=== PATIENT | female | born 1970 | race Caucasian/White ===

== ENCOUNTER 2017-08-12 21:13 | Emergency (ER) | payer BC ==
[~2017-08-12] VITALS: Ht 160 cm; Wt 54.4 kg
[~2017-08-12 21:13] MED LIST: CALC8.5C PO; CIPR1TAB11 PO; CLR10 PO; LOSA1TAB PO; META-38 PO; MULT-506 PO; NXM/40 PO
[2017-08-12 21:36] VITALS: TEMP 36.7; Ht 160 cm; Wt 54.4 kg
[2017-08-12] MEDS ORDERED: KETOROLAC TROMETHAMINE 30 MG/ML VIAL IV STA (21:46)
[2017-08-12] MEDS ORDERED: SODIUM CHLORIDE 0.9% 1000ML 1,000 ML IV STA (21:46)
[2017-08-12] MEDS ORDERED: ONDANSETRON INJ 2 MG/ML 2 ML VIAL IV STA (21:46)
[2017-08-12] MEDS ORDERED: FLUT0.15 NAE (21:56)
[2017-08-12] MEDS ORDERED: HYDR-3419 PO (21:56)
[2017-08-12 22:45] LABS: BASO ABS # 0.08 K/uL (0-0.2); EOS % 3.3 %; EOS ABS # 0.27 K/uL (0-0.5); HEMATOCRIT 37.1 % (37-47); HEMOGLOBIN 12.1 g/dL (12.0-16.0); IG# 0.01 K/uL (0.00-0.02); LYMPH % 34.6 %; LYMPH ABS # 2.87 K/uL (1.2-3.4); MEAN CELL VOLUME 92.3 fL (80-100); MEAN CORPUSCULAR HEMOGLOBIN 30.1 pg (25-34); MEAN CORPUSCULAR HGB CONC 32.6 g/dl (32-36); MEAN PLATELET VOLUME 9.9 fL (7.4-10.4); MONO % 11.8 %; MONO ABS # 0.98 K/uL (0.11-0.59); NEUT % 49.2 %; NEUT ABS # 4.08 K/uL (1.4-6.5); PLATELET COUNT 292 K/uL (130-400); RED CELL DISTRIBUTION WIDTH CV 13.1 % (11.5-14.5); WHITE BLOOD COUNT 8.29 K/uL (4.8-10.8)
--- NOTE | 2017-08-12 22:58 | DIAGNOSTIC IMAGING REPORT ---
ABD/PELVIS WITHOUT FOR STONE CT DOSE: 326.42 mGy.cm HISTORY: Flank pain flank pain TECHNIQUE: Multiaxial CT images of the abdomen and pelvis were performed without the use of intravenous and oral contrast according to the standard department stone protocol. A dose lowering technique was utilized adhering to the principles of ALARA. COMPARISON STUDY: None. FINDINGS: Lung bases are clear. Configuration of liver spleen and pancreas are grossly unremarkable. Right kidney demonstrates several nonobstructing central pole calcifications. There is mild fullness of the right renal pelvis and central right renal collecting system. There is possibly of a partially obstructing distal right ureteral calculus measuring 3 mm transaxial images 303. There is a 6 mm obstructing calculus mid left ureter. There is significant left sided hydronephrosis. Bowel pattern is considered nonobstructing. Bladder is midline. There are no contained bladder calcifications. IMPRESSION: 1. 6 mm obstructing calculus mid left ureter with significant left hydroureteronephrosis. 2. 3 mm potentially partially obstructing calculus distal right ureter with mild right hydroureteronephrosis. 3. Due to the difficulty in differentiating right ureter from surrounding bowel within the low pelvis, the possibility of periureteral vascular artifact is not entirely excluded. The above report was generated using voice recognition software. It may contain grammatical, syntax or spelling errors. Electronically signed by: Gallito Davis M.D. 08/12/2017 10:57 PM Dictated Date/Time: 08/12/2017 10:54 PM
[2017-08-12] MEDS ORDERED: FEXO1TAB49 PO (23:01)
[2017-08-12 23:05] LABS: CALCIUM 8.7 mg/dl (8.5-10.1); CREATININE 1.26 mg/dl (0.60-1.20); POTASSIUM 3.8 mmol/L (3.5-5.1)
[2017-08-12 23:37] VITALS: BP 129/61; PULSE 78; O2SAT 98
[2017-08-12] MEDS ORDERED: TAMS0.4C38 PO (23:56)
[2017-08-12] MEDS ORDERED: OXYC-57 PO (23:56)
--- NOTE | 2017-08-12 23:57 | EMERGENCY ROOM VISIT NOTE ---
History Report prepared by Elvia: Maikel Muir Under the Supervision of: Pravin BalesO. First contact with patient: 21:43 Chief Complaint: URINARY SYMPTOMS Stated Complaint: UTI SYMPTOMS History of Present Illness The patient is a 46 year old female who presents to the Emergency Room with complaints of persistent low abdominal pressure and urinary symptoms for two weeks. She notes at 0400 she experienced pain in her urethra and pressure in her lower abdomen. She took Advil, though it was mildly relieving. At lunch time she thought she had to go, though nothing came out. She was able to urinate later on in the afternoon. She thought she passed a kidney stone August 07, 2017, because she saw something resembling a stone in the toilet. She was trying to drink more water, though no relief. She has a history of hysterectomy. She had neck surgery two years ago and afterwards she was developing urinary symptoms when she had inflammation in her neck. She is unsure if the two are related. She notes her most recent urinalysis showed blood present, though no infection. She denies any abnormal vaginal discharge. Source of History: patient Onset: two weeks Position: abdomen (low) Quality: pressure Timing: other (persistent) Associated Symptoms: + urinary symptoms Note: Denies any abnormal vaginal discharge. Review of Systems See HPI for pertinent positives & negatives. A total of 10 systems reviewed and were otherwise negative. Past Medical & Surgical Medical Problems: (1) Left sided chest pain Family History FH: CAD (coronary artery disease) Heart attack Social History Smoking Status: Never Smoker Marital Status: Housing Status: lives with significant other Occupation Status: employed Current/Historical Medications Scheduled Calcium W/ Vitamins D & K (Viactiv), 1 DOSE PO DAILY Fexofenadine Hcl (Marycruz Allergy), 1 TAB PO DAILY Fluticasone Propionate (Nasal) (Flonase Allergy Relief), 2 SPRAYS ELLA DAILY Losartan Potassium (Cozaar), 25 MG PO DAILY Multivitamin (Multivitamin), 1 TAB PO DAILY Tamsulosin Hcl (Flomax), 0.4 MG PO HS Scheduled PRN Esomeprazole Magnesium (Nexium), 40 MG PO DAILY PRN for REFLUX Hydrocodon/Acetaminophen 5MG/300MG (Vicodin (5MG/300MG)), 1-2 TABS PO Q4-6HRS PRN for Pain Oxycodone/Acetaminophen 5MG/325MG (Percocet 5MG/325MG), 1 TAB PO Q6H PRN for Pain Allergies Coded Allergies: Banana (Verified Allergy, Intermediate, sorethroat, 06/06/15) Beef (Verified Allergy, Intermediate, sorethroat, 06/06/15) Chicken Meat (Verified Allergy, Intermediate, sorethroat, 06/06/15) Egg (Verified Allergy, Intermediate, sorethroat, 06/06/15) Eggs or Egg-derived Products (Verified Allergy, Intermediate, sorethroat, 06/06/15) Molds and Smuts (Verified Allergy, Intermediate, sorethroat, 06/06/15) POLLEN (Verified Allergy, Intermediate, sorethroat, 06/06/15) Peanut (Verified Allergy, Intermediate, sorethroat, 06/06/15) Shellfish (Verified Allergy, Unknown, UNKNOWN, 08/12/17) Uncoded Allergies: ENNVIRONMENT (Allergy, Severe, SORE THROAT,HEADACHE, 08/12/17) Physical Exam Vital Signs Date Time Temp Pulse Resp B/P (MAP) Pulse Ox O2 Delivery O2 Flow Rate FiO2 08/12/17 23:37 78 18 129/61 98 Room Air 08/12/17 22:39 84 18 134/80 100 Room Air 08/12/17 21:36 36.7 78 18 140/76 100 Room Air Physical Exam CONSTITUTIONAL/VITAL SIGNS: Reviewed / noted above. GENERAL: Non-toxic in appearance. INTEGUMENTARY: Warm, dry, and [place]. HEAD: Normocephalic. EYES: without scleral icterus or trauma. ENT/OROPHARYNX: clear and moist. LYMPHADENOPATHY/NECK: Is supple without lymphadenopathy or meningismus. RESPIRATORY: Lungs clear and equal. CARDIOVASCULAR: Regular rate and rhythm. GI/ABDOMEN: Soft and tender to palpation in the pelvic area. No organomegaly or pulsatile mass. No rebound or guarding. Normal bowel sounds. EXTREMITIES: Warm and well perfused. BACK: No CVA tenderness. NEUROLOGICAL: Intact without focal deficits. PSYCHIATRIC: normal affect. MUSCULOSKELETAL: Normally developed with good muscle tone. Medical Decision & Procedures ER Provider Diagnostic Interpretation: Radiology results as stated below per my review and radiologist interpretation: ABD/PELVIS WITHOUT FOR STONE CT DOSE: 326.42 mGy.cm HISTORY: Flank pain flank pain TECHNIQUE: Multiaxial CT images of the abdomen and pelvis were performed without the use of intravenous and oral contrast according to the standard department stone protocol. A dose lowering technique was utilized adhering to the principles of ALARA. COMPARISON STUDY: None. FINDINGS: Lung bases are clear. Configuration of liver spleen and pancreas are grossly unremarkable. Right kidney demonstrates several nonobstructing central pole calcifications. There is mild fullness of the right renal pelvis and central right renal collecting system. There is possibly of a partially obstructing distal right ureteral calculus measuring 3 mm transaxial images 303. There is a 6 mm obstructing calculus mid left ureter. There is significant left sided hydronephrosis. Bowel pattern is considered nonobstructing. Bladder is midline. There are no contained bladder calcifications. IMPRESSION: 1. 6 mm obstructing calculus mid left ureter with significant left hydroureteronephrosis. 2. 3 mm potentially partially obstructing calculus distal right ureter with mild right hydroureteronephrosis. 3. Due to the difficulty in differentiating right ureter from surrounding bowel within the low pelvis, the possibility of periureteral vascular artifact is not entirely excluded. The above report was generated using voice recognition software. It may contain grammatical, syntax or spelling errors. Electronically signed by: Gallito Davis M.D. 08/12/2017 10:57 PM Dictated Date/Time: 08/12/2017 10:54 PM Laboratory Results 08/12/17 22:03 Red Blood Count 4.02, Mean Corpuscular Volume 92.3, Mean Corpuscular Hemoglobin 30.1, Mean Corpuscular Hemoglobin Concent 32.6, Mean Platelet Volume 9.9, Neutrophils (%) (Auto) 49.2, Lymphocytes (%) (Auto) 34.6, Monocytes (%) (Auto) 11.8, Eosinophils (%) (Auto) 3.3, Basophils (%) (Auto) 1.0, Neutrophils # (Auto ) 4.08, Lymphocytes # (Auto) 2.87, Monocytes # (Auto) 0.98, Eosinophils # (Auto ) 0.27, Basophils # (Auto) 0.08 08/12/17 22:03 Test 08/12/17 21:50 08/12/17 22:03 Urine Color YELLOW Urine Appearance CLOUDY (CLEAR) Urine pH 5.0 (4.5-7.5) Urine Specific [place] 1.018 (1.000-1.030) Urine Protein NEG (NEG) Urine Glucose (UA) NEG (NEG) Urine Ketones NEG (NEG) Urine Occult Blood 1+ (NEG) Urine Nitrite NEG (NEG) Urine Bilirubin NEG (NEG) Urine Urobilinogen NEG (NEG) Urine Leukocyte Esterase LARGE (NEG) Urine WBC (Auto) >30 /hpf (0-5) Urine RBC (Auto) 5-10 /hpf (0-4) Urine Hyaline Casts (Auto) 5-10 /lpf (0-5) Urine Epithelial Cells (Auto) >30 /lpf (0-5) Urine Bacteria (Auto) NEG (NEG) Urine Renal Epithelial Cells 0-5 /lpf (0-5) White Blood Count 8.29 K/uL (4.8-10.8) Red Blood Count 4.02 M/uL (4.2-5.4) Hemoglobin 12.1 g/dL (12.0-16.0) Hematocrit 37.1 % (37-47) Mean Corpuscular Volume 92.3 fL (80-100) Mean Corpuscular Hemoglobin 30.1 pg (25-34) Mean Corpuscular Hemoglobin Concent 32.6 g/dl (32-36) Platelet Count 292 K/uL (130-400) Mean Platelet Volume 9.9 fL (7.4-10.4) Neutrophils (%) (Auto) 49.2 % Lymphocytes (%) (Auto) 34.6 % Monocytes (%) (Auto) 11.8 % Eosinophils (%) (Auto) 3.3 % Basophils (%) (Auto) 1.0 % Neutrophils # (Auto) 4.08 K/uL (1.4-6.5) Lymphocytes # (Auto) 2.87 K/uL (1.2-3.4) Monocytes # (Auto) 0.98 K/uL (0.11-0.59) Eosinophils # (Auto) 0.27 K/uL (0-0.5) Basophils # (Auto) 0.08 K/uL (0-0.2) RDW Standard Deviation 44.0 fL (36.4-46.3) RDW Coefficient of Variation 13.1 % (11.5-14.5) Immature Granulocyte % (Auto) 0.1 % Immature Granulocyte # (Auto) 0.01 K/uL (0.00-0.02) Anion Gap 7.0 mmol/L (3-11) Est Creatinine Clear Calc Drug Dose 45.6 ml/min Estimated GFR () 58.8 Estimated GFR (Non- 50.7 BUN/Creatinine Ratio 15.0 (10-20) Calcium Level 8.7 mg/dl (8.5-10.1) Laboratory results as stated above per my review. Medications Administered Medications (Trade) Dose Ordered Sig/Benja Route Start Time Stop Time Status Last Admin Dose Admin Sodium Chloride 1,000 ml @ 999 mls/hr Q1H1M STAT IV 08/12/17 21:46 08/12/17 22:46 DC 08/12/17 22:09 999 MLS/HR Ondansetron HCl (Zofran Inj) 4 mg NOW STAT IV 08/12/17 21:46 08/12/17 21:49 DC 08/12/17 22:09 4 MG Ketorolac Tromethamine (Toradol Inj) 30 mg NOW STAT IV 08/12/17 21:46 08/12/17 21:49 DC 08/12/17 22:09 30 MG ED Course 5: Previous medical records were reviewed. The patient was evaluated in room B3B. A complete history and physical examination was performed. 2145: Ordered Toradol 30 mg IV, Zofran 4 mg IV, and Sodium Chloride 1,000 ml @ 999 mls/hr IV 2309: I reassessed the patient at this time. The patient was still in pain, though declined any more pain medication. I discussed the results and treatment plan with the patient. I answered all pertaining questions that she had. She expressed understanding and verbalized agreement. The patient will be discharged home. Medical Decision Differential considered: pancreatitis, hepatitis, or acute cholecystitis, AAA, UTI, pyelonephritis, kidney stones, appendicitis, diverticulitis, shingles, bowel obstruction mesenteric ischemia, intussusception, hernia, ovarian torsion , ruptured ovarian cyst, ectopic , . This is a 46-year-old female who presents to the ED with a chief complaint of pain in the suprapubic area. She states that it started around 4 AM. She has had some intermittent pains over the past week or 2 similar to this as well. She was seen by her PCP twice and had 2 urine culture that did not show infection. The patient states that she thinks that she may have passed a kidney stone last week. Her physical exam today reveals some mild suprapubic tenderness. CBC and chemistry panel did not show significant abnormalities. The BUN is 19 and the creatinine is 1.26. Urine did not show any bacteria. CT scan of the abdomen pelvis reveals a 6 mm left ureteral stone with significant hydronephrosis. There is also a 3 mm distal right ureteral stone causing some mild hydro-although the stone was not seen with certainty or could be a phlebolith. The patient was treated as above with IV Toradol, IV fluids and IV Zofran. She was given a prescription for Percocet and Flomax. She was given a referral to urology. She is felt to be stable for discharge and outpatient follow-up. Medication Reconcilliation Current Medication List: was personally reviewed by me Blood Pressure Screening Patient's blood pressure: Elevated blood pressure Blood pressure disposition: Elevated BP felt to be situational Impression Primary Impression: Bilateral ureteral calculi Scribe Attestation The scribe's documentation has been prepared under my direction and personally reviewed by me in its entirety. I confirm that the note above accurately reflects all work, treatment, procedures, and medical decision making performed by me. Departure Information Dispostion Home / Self-Care Prescriptions Oxycodone/Acetaminophen 5MG/325MG (PERCOCET 5MG/325MG) Tab 1 TAB PO Q6H Y for Pain, #20 TAB Prov: Jamie Abarca D.O. 08/12/17 Tamsulosin Hcl (FLOMAX) 0.4 Mg Cap 0.4 MG PO HS, #10 CAP Prov: Jamie Abarca D.O. 08/12/17 Referrals No Doctor, Assigned (PCP) Yossi Ladd, II., DO Forms HOME CARE DOCUMENTATION FORM, IMPORTANT VISIT INFORMATION Patient Instructions Kidney Stones - [facility], [facility] Additional Instructions Take ibuprofen or Advil 600 mg every 6 hours for discomfort. Flomax as prescribed. Percocet as prescribed. No driving within 6 hours of use. Do not take additional Tylenol while taking Percocet. Strain urine to find stone. Follow-up with urology. Dr. Yossi Ladd is listed. Follow-up with your doctor for further care and evaluation in 1-7 days. Return to the emergency department for worsening or new symptoms or any concerns. You have been examined and treated today on an emergency basis only. This is not a substitute for, or an effort to provide, complete comprehensive medical care. It is impossible to recognize and treat all injuries or illnesses in a single emergency department visit. It is therefore important that you follow up closely with your doctor. Call as soon as possible for an appointment.
== END 2017-08-13 00:17 | disposition home or self-care (01) ==
LOC: C.EDB 21:15
DX: N20.1 Calculus of ureter (principal); Z90.710 Acquired absence of both cervix and uterus; Z79.899 Other long term (current) drug therapy; Z79.52 Long term (current) use of systemic steroids; Z91.018 Allergy to other foods; Z91.012 Allergy to eggs; Z91.010 Allergy to peanuts; Z91.013 Allergy to seafood; Z91.048 Other nonmedicinal substance allergy status

== ENCOUNTER → 2017-10-25 | Outpatient (CLI) | payer BC ==
[~2017-10-25] MED LIST changes: -CIPR1TAB11 PO; -CLR10 PO; +FEXO1TAB49 PO; +FLUT0.15 NAE; +HYDR-3419 PO; -META-38 PO; +OXYC-57 PO
[2017-10-25 15:42] LABS: BASO % 1.5 %; EOS % 3.2 %; EOS ABS # 0.21 K/uL (0-0.5); HEMATOCRIT 35.7 % (37-47); HEMOGLOBIN 11.7 g/dL (12.0-16.0); IG# 0.02 K/uL (0.00-0.02); LYMPH % 33.5 %; MEAN CELL VOLUME 90.8 fL (80-100); MEAN CORPUSCULAR HEMOGLOBIN 29.8 pg (25-34); MEAN CORPUSCULAR HGB CONC 32.8 g/dl (32-36); MEAN PLATELET VOLUME 10.6 fL (7.4-10.4); MONO % 9.8 %; MONO ABS # 0.64 K/uL (0.11-0.59); NEUT % 51.7 %; NEUT ABS # 3.39 K/uL (1.4-6.5); PLATELET COUNT 237 K/uL (130-400); RED CELL DISTRIBUTION WIDTH CV 12.9 % (11.5-14.5); RED CELL DISTRIBUTION WIDTH SD 42.7 fL (36.4-46.3); WHITE BLOOD COUNT 6.56 K/uL (4.8-10.8)
[2017-10-25 16:09] LABS: BLOOD UREA NITROGEN 23 mg/dl (7-18); CARBON DIOXIDE 27 mmol/L (21-32); CREATININE 1.25 mg/dl (0.60-1.20); SODIUM 142 mmol/L (136-145)
--- NOTE | 2017-10-25 16:16 | DIAGNOSTIC IMAGING REPORT ---
CHEST 2 VIEWS ROUTINE CLINICAL HISTORY: Preoperative evaluation. COMPARISON STUDY: Chest radiograph June 05, 2015. FINDINGS: Incidental note is made of an anterior cervical spine fusion. Lung volumes are normal. No pneumothorax or pleural effusion is noted. There is no consolidation or evidence for pulmonary edema. Cardiomediastinal silhouette is unremarkable. Appearance of the chest is unchanged. IMPRESSION: No acute cardiopulmonary findings. Electronically signed by: Yeison Santiago M.D. 10/25/2017 4:14 PM Dictated Date/Time: 10/25/2017 4:14 PM
== END | disposition home or self-care (01) ==
LOC: C.CPL 14:58
PROVIDERS: ATTEND Urology
DX: N20.0 Calculus of kidney (principal)

== ENCOUNTER → 2017-11-13 | Outpatient (CLI) | payer BC ==
--- NOTE | 2017-11-13 10:05 | DIAGNOSTIC IMAGING REPORT ---
KUB CLINICAL HISTORY: 47 years-old Female presenting with N20.0 Calculus of kidney, left renal stone. TECHNIQUE: Single supine view of the abdomen was obtained. COMPARISON: 11/01/2017. FINDINGS: Nonobstructive bowel gas pattern. No gross pneumoperitoneum. Redemonstration of several small right renal calculi the interpolar region, which are punctate in size. An additional cluster of small calculi is present at the upper pole the right kidney. No radiographic evidence of left renal calculi allowing for bowel gas and stool. The previously noted calculi in the left mid ureter are no longer evident.. Osseous structures normal. Lung bases clear. IMPRESSION: 1. Right nephrolithiasis. No radiographic evidence of left renal calculi. 2. Previously noted left ureteral calculi are no longer present suggesting passage. Electronically signed by: Surendra Bonner M.D. 11/13/2017 10:05 AM Dictated Date/Time: 11/13/2017 10:02 AM
== END | disposition home or self-care (01) ==
LOC: C.RAD1850 09:35
PROVIDERS: ATTEND Urology
DX: N20.0 Calculus of kidney (principal)

== ENCOUNTER → 2017-11-13 | Outpatient (CLI) | payer BC | END | disposition home or self-care (01) | LOC: C.LABSPEC 17:15 | PROVIDERS: ATTEND Urology | DX: N20.0 Calculus of kidney (principal) ==

== ENCOUNTER → 2017-11-28 | Outpatient (CLI) | payer BC ==
[2017-11-28 15:44] LABS: BASO ABS # 0.07 K/uL (0-0.2); EOS % 2.5 %; EOS ABS # 0.18 K/uL (0-0.5); HEMATOCRIT 36.1 % (37-47); HEMOGLOBIN 12.2 g/dL (12.0-16.0); IG# 0.02 K/uL (0.00-0.02); LYMPH % 28.9 %; LYMPH ABS # 2.04 K/uL (1.2-3.4); MEAN CELL VOLUME 91.2 fL (80-100); MEAN CORPUSCULAR HEMOGLOBIN 30.8 pg (25-34); MEAN CORPUSCULAR HGB CONC 33.8 g/dl (32-36); MEAN PLATELET VOLUME 10.5 fL (7.4-10.4); MONO % 9.8 %; MONO ABS # 0.69 K/uL (0.11-0.59); NEUT % 57.5 %; NEUT ABS # 4.06 K/uL (1.4-6.5); PLATELET COUNT 251 K/uL (130-400); RED CELL DISTRIBUTION WIDTH CV 12.6 % (11.5-14.5); RED CELL DISTRIBUTION WIDTH SD 42.2 fL (36.4-46.3); WHITE BLOOD COUNT 7.06 K/uL (4.8-10.8)
[2017-11-28 16:40] LABS: ALBUMIN 4.5 gm/dl (3.4-5.0); BLOOD UREA NITROGEN 26 mg/dl (7-18); CALCIUM 9.3 mg/dl (8.5-10.1); CARBON DIOXIDE 27 mmol/L (21-32); GLUCOSE 95 mg/dl (70-99); PHOSPHORUS 3.3 mg/dl (2.5-4.9); POTASSIUM 3.8 mmol/L (3.5-5.1); SODIUM 142 mmol/L (136-145); URIC ACID 4.8 mg/dl (2.6-7.2)
== END | disposition home or self-care (01) ==
LOC: C.LAB1850 14:45
PROVIDERS: ATTEND Internal Medicine Nephrology
DX: N20.0 Calculus of kidney (principal); I10 Essential (primary) hypertension; E55.9 Vitamin D deficiency, unspecified

== ENCOUNTER 2024-07-24 04:50 | Inpatient (IN) ==
--- NOTE | 2024-07-24 05:03 | Emergency Department Note ---
Impression & Plan Sepsis, Pneumonia, Acute hypotension, Rhinovirus infection, Chest pain, SOB (shortness of breath), Bilateral leg pain ED Provider Note CHIEF COMPLAINT: Hypotension HISTORY OF PRESENTING ILLNESS: This 53-year-old female patient presents to the emergency department via EMS for evaluation of hypotension. The patient has recently been having her metoprolol dose decreased by her doctor due to bradycardia. The patient noticed around 2 am that she started to feel a little woozy and checked her BP and it was 93/65 with a HR of 77. The patient checked her blood pressure multiple times at home and it remained low. EMS was then contacted. Upon EMS arrival her blood pressure was 80/60 and she was given 1 L NSS by EMS with mild improvement of her BP to 108/64. The patient has had some nausea, but states the IV fluids helped with her nausea. EKG by EMS was normal. She has had URI symptoms for the past 5 days. She has a history of chronic sinusitis and is scheduled for surgery. She has had nausea, but no vomiting. Denies abdominal pain. Has been having intermittent chest pain and shortness of breath. The patient has also had some pain to the back of her legs bilaterally over the past week or so. She also states that she feels "weird in the head" right now, but not a headache. She denies any neurologic symptoms or strokelike symptoms. Denies any urinary symptoms or changes in her BMs. Denies hematochezia, melena, hematuria, hemoptysis, or hematemesis. Her PCP has been adjusting her metoprolol dose recently. REVIEW OF SYSTEMS: See HPI for pertinent positives and pertinent negatives. ALLERGIES: Beef containing products, chicken, Toradol, mold, pollen, milk, shellfish, multiple environmental allergies MEDICATIONS: See below PAST MEDICAL HISTORY: See below PHYSICAL EXAM: VITALS: Vitals are noted on the nurse's note and reviewed by myself. GENERAL: Non toxic, in no acute distress, non-diaphoretic. SKIN: Capillary refill <2 sec. EYES: PERRLA. EOMI. Conjunctivae without injection, sclerae without icterus. NOSE: Patent without discharge. MOUTH: Mucous membranes moist. Uvula midline. Airway patent. NECK: Supple without nuchal rigidity. HEART: Regular rate and rhythm without murmurs gallops or rubs. LUNGS: Clear to auscultation bilaterally without wheezes, rales or rhonchi. No retractions or accessory muscle use. ABDOMEN: Positive bowel sounds x 4. Normal tympanic percussion. Soft, nontender to palpation. No masses or hepatosplenomegaly. Bhandari sign negative. No CVA tenderness. No guarding, rigidity, or rebound tenderness. No focal RLQ or LLQ tenderness. MUSCULOSKELETAL: The patient has tender to palpation of the bilateral calves and bilateral popliteal fossa. No obvious erythema, warmth, or cording. Peripheral pulses 2+ and equal in the bilateral upper and lower extremities. NEURO: Patient was alert and oriented. No focal neurological deficits. DIFFERENTIAL DIAGNOSIS: Differential diagnosis includes dehydration, vasovagal episode, orthostatic hypotension, angina, AL, pericarditis, myocarditis, aortic dissection, pleurisy, pneumothorax, PE, pneumonia, pneumomediastinum, esophagitis, esophageal spasm, GERD, perforated esophagus, perforated duodenal/gastric ulcer, pancreatitis, cholecystitis, costochondritis, musculoskeletal, bronchitis, URI, or others. ED COURSE AND MEDICAL DECISION MAKING: HISTORY FROM INDEPENDENT HISTORIAN: Additional history obtained from EMS. MEDICATIONS GIVEN: The patient was given 1 L normal saline solution bolus by EMS prior to arrival. The patient was given an additional 1 L normal saline solution bolus in the ER. The patient declined Zofran or any pain medications while in the ER. She was given Rocephin 2 g IV as well as Zithromax 500 mg p.o. MONITOR: Continuous architectural engineer: Order was placed for continuous architectural engineer. Patient was placed on the architectural engineer and continuous pulse ox. Patient was noted to be in normal sinus rhythm at an initial rate of 80 bpm per my interpretation. EKG: EKG was interpreted by myself as normal sinus rhythm at 77 bpm with no acute ST or T wave changes. INTERPRETATION OF LABS: I interpreted the labs with full lab results as below in the lab section of this note. Laboratory results pertinent to the emergent complaint are discussed in the MDM section below. The patient was advised to follow up with their PCP and/or specialist(s) for further outpatient monitoring and management of any abnormal results. INTERPRETATION OF IMAGING: Imaging studies were interpreted by myself and read by radiology as per the imaging section of this note. The patient was advised to follow up with their PCP and/or specialist(s) for further outpatient management of any non-emergent abnormal findings. Chest x-ray shows an obliterated left CP angle representing pleural effusion with left lower lobe opacities and basal collapse consolidation. There is also a right lower lobe infiltrate/opacity. CTA of the chest and bilateral venous Doppler are still pending. ESCALATION OF CARE CONSIDERED: Yes. The patient will require admission for further evaluation and treatment of her pneumonia. However, CTA of the chest and bilateral venous Doppler are still pending. MDM SUMMARY: I examined the patient. The patient woke up around 2 AM noticing that she felt a little queasy and not right. She checked her blood pressure and it was low. The patient has been having her metoprolol dose decreased recently due to history of bradycardia. The patient has also been sick for the past week. She has been complaining of some chest pain and shortness of breath as well. Also having pain to the back of her legs. The patient is concerned for blood clots. The patient states that she just does not feel right. An IV lock was placed and labs were drawn. The patient was given 1 L normal saline solution bolus by EMS with improvement of her blood pressure as well as improvement of her symptoms momentarily. Initially Zofran was ordered, but the patient declined to this. The patient was given an additional 1 L normal saline solution bolus in the ER. White blood cell count elevated at 16.16. Hemoglobin normal at 12.7. Platelet count normal at 195. Coags were normal. Sodium 135, creatinine 1.22, BUN 24, glucose 109, magnesium 1.5, and AST 49, but CMP otherwise normal. Respiratory BioFire positive for rhinovirus/enterovirus. Urinalysis was normal. Lactate elevated at 2.6. The patient's white blood cell count was also elevated and she was hypotensive initially. The patient has pneumonia on chest x-ray. Therefore, there was concern for sepsis. The patient had already been given a total of 2 L normal saline solution bolus based on her actual weight. Blood cultures were obtained and are pending. The patient was given Rocephin 2 g IV and Zithromax 500 mg p.o. The patient will require admission for her pneumonia and possible sepsis. The patient's D-dimer did come back elevated at 630. The patient was concerned for a blood clot and has been having some chest pain, shortness of breath, and pain to the back of her legs. Therefore, CTA of the chest and venous Doppler of the bilateral lower extremities were ordered. However, due to change of shift, these are still pending. Due to change of shift, the patient's care was transferred to Marci Prieto PA-C awaiting the results of the CTA of the chest and venous Doppler studies. Please refer to her dictation for further details. The patient's care was transferred in stable condition. DIAGNOSIS: Possible sepsis Pneumonia Hypotension Chest pain SOB Rhinovirus Bilateral lower extremity pain Past Med/Surg History Problem List (Updated 07/24/24 @ 07:53 by Hannah Mcgrath PA-C) Bilateral leg pain (Acute) SOB (shortness of breath) (Acute) Chest pain (Acute) Rhinovirus infection (Acute) Acute hypotension (Acute) Pneumonia (Acute) Sepsis (Acute) Dysuria Urinary tract infection (Acute) Encounter for pre-operative examination Nephrolithiasis R UVJ stone - plan for cysto, R URS/LL/stent Right flank pain Medical History History of strep sore throat finished treatment 1 week ago Yeast infection finishing treatment by 07/17/22 Brain bleed - Per MRI over a year ago, follows with neurology [facility] in [place] every year per pt - Per 07/16/22 neuro note- MRI of brain was "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 No evidence of acute bleed- neuro will jsut monitor with MRIs History of COVID-24 Aug 2021 > not hospitalized Kidney stones Hx of peptic ulcer resolved Migraine every couple months follows with neuro Hypertension Environmental allergies Seasonal allergies Surgical History History of esophagogastroduodenoscopy (EGD) History of cystoscopy S/P cervical spinal fusion limited ROM History of mandibular surgery Nausea and vomiting after administration of anesthetic agent Hx of cervical discectomy limited rom with neck - continues to have pain in neck History of lithotripsy Hx of oophorectomy right History of hysterectomy History of appendectomy History of colonoscopy Family History Father Family history of diabetes mellitus Social History Smoking Status: Never smoker Second Hand Exposure: No; Do You Dip or Chew Tobacco: No; Hx Alcohol Use: No Hx Substance Use: No Preferred Language: Swiss Communication Ability: Effective Visual Impairment: No Limitations Snuff Blender Required: No Beliefs That Will Affect Care: None Current Living Situation: Spouse Feels Safe at Home: Yes Safety Concerns: Feels Safe At This Time Assistive Devices: None Allergies Allergies Allergy/AdvReac Type Severity Reaction Status Date / Time Beef Containing Products Allergy Intermediate sorethroat Verified 07/24/24 08:49 chicken derived Allergy Intermediate sorethroat Verified 07/24/24 08:49 ketorolac Allergy Intermediate Rash Verified 07/24/24 08:49 mold Allergy Intermediate sorethroat Verified 07/24/24 08:49 pollen extracts Allergy Intermediate sorethroat Verified 07/24/24 08:49 milk Allergy Mild GI SYMPTOMS Verified 07/24/24 08:49 ENNVIRONMENT Allergy Severe SORE Uncoded 07/24/24 08:49 THROAT,HEADACHE Home Meds Home Medications Medication Instructions Recorded Confirmed multivitamin 1 tab PO QAM 01/06/18 07/24/24 azelastine 137 mcg (0.1 %) nasal 1 spray intranasal DAILY 04/02/24 07/24/24 spray budesonide 0.5 mg/2 mL suspension 0.5 mg irrigation DAILY 04/02/24 07/24/24 for nebulization buspirone 5 mg tablet 5 mg PO BID 04/02/24 07/24/24 fluoxetine 20 mg capsule (Prozac) 20 mg PO DAILY 04/02/24 07/24/24 fluoxetine 40 mg capsule (Prozac) 40 mg PO DAILY 04/02/24 07/24/24 hydrocodone 5 mg-acetaminophen 325 1 tab PO BID PRN Back Pain 04/02/24 07/24/24 mg tablet calcium citrate 200 mg PO TIDWMEAL 07/24/24 07/24/24 coenzyme Q10 100 mg capsule 100 mg PO DAILY 07/24/24 07/24/24 (CoQ-10) cyanocobalamin (vitamin B-12) 1,000 mcg PO DAILY 07/24/24 07/24/24 1,000 mcg tablet (Vitamin B-12) dupilumab 300 mg/2 mL subcutaneous 300 mg subcut Q14D 07/24/24 07/24/24 pen injector (BadAbroadixHopper) erenumab-aooe 140 mg/mL 140 mg subcut MONTHLY 07/24/24 07/24/24 subcutaneous auto-injector (Aimovig Autoinjector) levocetirizine 5 mg tablet 5 mg PO HS 07/24/24 07/24/24 metoprolol tartrate 25 mg tablet 12.5 mg PO BID 07/24/24 07/24/24 Results & Data (ED) Vital Signs Vital Signs - 24 hr 07/24/24 05:01 07/24/24 05:06 07/24/24 05:11 Temperature 36.6 C Temperature Source Oral Pulse Rate 77 79 Pulse Rate from SpO2 Sensor Respiratory Rate 20 Respiratory Effort / Characteristics Non-Labored Spontaneous Respiratory Depth Normal Respiratory Pattern Regular Blood Pressure 106/48 L Blood Pressure Mean 67 Pulse Oximetry 96 99 Oxygen Delivery Method Room Air Room Air Sepsis Recent Fever Within 48 Hours No Sepsis New/Unexplained Change in Mental Status No Sepsis Action Taken by Nursing No Action Required 07/24/24 05:36 07/24/24 05:45 07/24/24 06:00 Temperature Temperature Source Pulse Rate 77 75 75 Pulse Rate from SpO2 Sensor 77 Respiratory Rate 21 20 21 Respiratory Effort / Characteristics Respiratory Depth Respiratory Pattern Blood Pressure 103/71 86/60 L 106/67 Blood Pressure Mean 81 66 73 Pulse Oximetry 97 96 96 Oxygen Delivery Method Room Air Room Air Room Air Sepsis Recent Fever Within 48 Hours Sepsis New/Unexplained Change in Mental Status Sepsis Action Taken by Nursing 07/24/24 06:15 07/24/24 06:30 07/24/24 06:45 Temperature Temperature Source Pulse Rate 77 Pulse Rate from SpO2 Sensor Respiratory Rate 19 Respiratory Effort / Characteristics Respiratory Depth Respiratory Pattern Blood Pressure 108/64 111/71 111/62 Blood Pressure Mean 76 78 81 Pulse Oximetry 96 Oxygen Delivery Method Room Air Sepsis Recent Fever Within 48 Hours Sepsis New/Unexplained Change in Mental Status Sepsis Action Taken by Nursing 07/24/24 07:33 Temperature Temperature Source Pulse Rate 78 Pulse Rate from SpO2 Sensor 78 Respiratory Rate 24 Respiratory Effort / Characteristics Respiratory Depth Respiratory Pattern Blood Pressure Blood Pressure Mean Pulse Oximetry 97 Oxygen Delivery Method Sepsis Recent Fever Within 48 Hours Sepsis New/Unexplained Change in Mental Status Sepsis Action Taken by Nursing Laboratory Data 07/24/24 05:34 07/24/24 05:34 Lab Results 07/24/24 07/24/2425 Range/Units 05:30 05:34 07:05 WBC 16.16 H (4.8-10.8) K/ul RBC 4.15 L (4.20-5.40) M/uL Hgb 12.7 (12.0-16.0) g/dl Hct 38.3 (37.0-47.0) % MCV 92.3 (80.0-100.0) fL MCH 30.6 (25.0-34.0) pg MCHC 33.2 (32.0-36.0) g/dL RDW Std Deviation 46.2 (36.4-46.3) fL RDW Coeff of Barrett 13.5 (11.5-14.5) % Plt Count 195 (130-400) K/uL MPV 10.6 (9.4-12.4) fL Immature Gran % (Auto) 0.4 % Neut % (Auto) 85.2 % Lymph % (Auto) 4.1 % [place]enton % (Auto) 10.0 % Eos % (Auto) 0.0 % Baso % (Auto) 0.3 % Neut # (Auto) 13.76 H (1.40-6.50) K/uL Lymph # (Auto) 0.66 L (1.20-3.40) K/uL Benton # (Auto) 1.62 H (0.11-0.59) K/uL Eos # (Auto) 0.00 (0.00-0.50) K/uL Baso # (Auto) 0.05 (0.00-0.20) K/uL Immature Gran # (Auto) 0.07 (0.01-0.20) K/uL RBC Morphology Unremarkable PT 11.0 (9.0-12.0) Seconds INR 1.0 (0.9-1.1) APTT 29 (21-31) Seconds PTT Ratio 1.1 D-Dimer 630 H* (0-500) ug/L FEU Sodium 135 L (136-145) mmol/L Potassium 4.2 (3.5-5.1) mmol/L Chloride 99 (98-107) mmol/L Carbon Dioxide 26 (21-32) mmol/L Anion Gap 10 (3-11) BUN 24 H (6-23) mg/dl Creatinine 1.22 H (0.6-1.2) mg/dl Est Cr Clr Drug Dosing 44.6 ml/min eGFR 52.74 BUN/Creatinine Ratio 19.7 (10-20) Glucose 109 H (70-99(Fasting)) mg/dl Lactate 2.6 H* (0.4-2.0) mmol/L Calcium 9.1 (8.6-10.3) mg/dl Magnesium 1.5 L (1.7-2.4) mg/dl Total Bilirubin 0.9 (0.2-1.0) mg/dl AST 49 H (13-39) U/L ALT 45 (7-52) U/L Alkaline Phosphatase 98 (34-104) U/L Troponin I High Sens 5.3 (0-14) pg/ml Total Protein 6.4 (6.0-8.3) gm/dl Albumin 4.0 (3.4-5.0) gm/dl Globulin 2.4 L (2.5-4.0) gm/dl Albumin/Globulin Ratio 1.7 (0.9-2) Lipase 21 (11-82) U/L Urine Color Yellow Urine Appearance Clear (Clear) Urine pH 6.5 (4.5-7.5) Ur Specific [place] 1.005 (1.000-1.030) Urine Protein Negative (Negative) Urine Glucose (UA) Negative (Negative) Urine Ketones Negative (Negative) Urine Blood Negative (Negative) Urine Nitrite Negative (Negative) Urine Bilirubin Negative (Negative) Urine Urobilinogen Negative (Negative) Ur Leukocyte Esterase Negative (Negative) Adenovirus (PCR) Not Detected (NotDetected) B. pertussis DNA (PCR) Not Detected (NotDetected) B.parapertussis DNA PCR Not Detected (NotDetected) C. pneumoniae DNA (PCR) Not Detected (NotDetected) Coronavirus OC43 (PCR) Not Detected (NotDetected) Coronavirus HKU1 (PCR) Not Detected (NotDetected) Coronavirus 229E (PCR) Not Detected (NotDetected) SARS-CoV-2 (PCR) Not Detected (NotDetected) Coronavirus NL63 (PCR) Not Detected (NotDetected) Human Metapneumovir PCR Not Detected (NotDetected) Influenza Type A (PCR) Not Detected (NotDetected) Influenza Type B (PCR) Not Detected (NotDetected) M. pneumoniae (PCR) Not Detected (NotDetected) Parainfluenza 1 (PCR) Not Detected (NotDetected) Parainfluenza 2 (PCR) Not Detected (NotDetected) Parainfluenza 3 (PCR) Not Detected (NotDetected) Parainfluenza 4 (PCR) Not Detected (NotDetected) RSV (PCR) Not Detected (NotDetected) Entero/Rhino (PCR) DETECTED A (NotDetected) Administered Medications Calcium Citrate (Calcium Citrate 950 Mg Tab) 950 mg PO TIDM [facility] Stop: 08/23/24 11:59 Last Admin: 07/24/24 16:42 Dose: 950 mg Documented By: Admin: 07/24/24 12:47 Dose: 950 mg Documented By: JOSIE Enoxaparin Sodium (Enoxaparin Inj 40 Mg/0.4 Ml Syr) 40 mg SQ QAM [facility] Stop: 08/23/24 12:29 Last Admin: 07/24/24 12:47 Dose: 40 mg Documented By: JOSIE Lactobacillus Acidophilus (Advanced Probiotic 625 Mg Capsule) 1,250 mg PO DAILY [facility] Stop: 08/23/24 12:29 Last Admin: 07/24/24 12:47 Dose: 1,250 mg Documented By: JOSIE Metoprolol Tartrate (Metoprolol Tartrate 25 Mg Tab) 12.5 mg PO BID ESTRELLA Stop: 08/23/24 20:59 Last Admin: 07/24/24 20:28 Dose: Not Given Documented By: ANTONIAW Discontinued Medications Albuterol (Albuterol 0.083% Nebu Soln 3 Ml Vial) 2.5 mg NEB NOW STA; Protocol Stop: 07/24/24 12:14 Last Admin: 07/24/24 12:24 Dose: 2.5 mg Documented By: MARIO ALBERTO Azithromycin (Azithromycin 250 Mg Tab) 500 mg PO NOW ONE Stop: 07/24/24 07:28 Last Admin: 07/24/24 08:55 Dose: 500 mg Documented By: ONELIA Ceftriaxone Sodium (Rocephin) 2,000 mg in 50 mls @ 100 mls/hr IV NOW STA Stop: 07/24/24 06:45 Last Infusion: 07/24/24 08:07 Dose: Infused Documented By: Admin: 07/24/24 07:17 Dose: 100 mls/hr Documented By: SRIRAM Sodium Chloride (Nss) 1,000 mls @ 999 mls/hr IV .Q1H1M ONE Stop: 07/24/24 07:16 Last Infusion: 07/24/24 08:22 Dose: Infused Documented By: Admin: 07/24/24 07:20 Dose: 999 mls/hr Documented By: SRIRAM Sodium Chloride (Nss) 1,000 mls @ 999 mls/hr IV .Q1H1M ESTRELLA Stop: 07/24/24 10:17 Last Infusion: 07/24/24 12:32 Dose: Infused Documented By: Admin: 07/24/24 11:29 Dose: 999 mls/hr Documented By: JOSIE Ioversol (Optiray 320 125ml) 112 ml IV ONCE ONE Stop: 07/24/24 08:01 Last Admin: 07/24/24 08:01 Dose: 112 ml Documented By: THIAGO Ondansetron HCl (Ondansetron Inj 2 Mg/Ml 2 Ml Vial) 4 mg IV NOW STA Stop: 07/24/24 05:12 Last Admin: 07/24/24 05:47 Dose: Not Given Documented By: SRIRAM Imaging Data Radiologist's Impression: Venous Doppler Study 07/24/24 06:50 BILATERAL LOWER EXTREMITY VENOUS DOPPLER HISTORY: Bilateral leg pain, elev D-dimer, eval DVT COMPARISON STUDY: None FINDINGS: No evidence of DVT seen at the lower extremities. IMPRESSION: No DVT seen. ACT 112: Negative or not required by law. Electronically signed by: Nic Larios M.D. 07/24/2024 8:53 AM Discharge Plan Visit Data Chief Complaint: Hypotension Stated Complaint: Hypotension, Medication Change ED Provider: Cal Paredes ED Midlevel Provider: Jinny Prieto Discharge Problem: Sepsis, Pneumonia, Acute hypotension, Rhinovirus infection, Chest pain, SOB (shortness of breath), Bilateral leg pain Patient Disposition: Admitted As Inpatient Condition: Good Discharge Instructions Interventions: ED Discharge Assessment Last Done: 07/24/24 17:35 Discharge Problem: Chest pain Qualifiers: Chest pain type: unspecified Qualified Code(s): R07.9 - Chest pain, unspecified
[2024-07-24] MEDS: ONDANSETRON INJ 2 MG/ML 2 ML VIAL IV STA (05:47)
[2024-07-24 05:59] LABS: Appearance Urine Clear (Clear); Bilirubin Urine Negative (Negative); Blood Urine Negative (Negative); Color Urine Yellow; Glucose Urine UA Negative (Negative); Ketones Urine Negative (Negative); Leukocyte Esterase Urine Negative (Negative); Nitrite Urine Negative (Negative); Protein Urine Negative (Negative); Specific Gravity Urine 1.005 (1.000-1.030); Urobilinogen Urine Negative (Negative); pH Urine 6.5 (4.5-7.5)
[2024-07-24 06:08] LABS: Hematocrit (blood only) 38.3 % (37.0-47.0); Hemoglobin 12.7 g/dl (12.0-16.0); Mean Corpuscular Hemoglobin 30.6 pg (25.0-34.0); Mean Corpuscular Hgb Conc 33.2 g/dL (32.0-36.0); Mean Corpuscular Volume 92.3 fL (80.0-100.0); Mean Platelet Volume 10.6 fL (9.4-12.4); Platelet Count 195 K/uL (130-400); RDW Coefficient of Variation 13.5 % (11.5-14.5); RDW Standard Deviation 46.2 fL (36.4-46.3); Red Blood Count 4.15 M/uL (4.20-5.40); White Blood Count 16.16 K/ul (4.8-10.8)
--- NOTE | 2024-07-24 06:17 | XRay Report ---
EXAM: XR chest 1V portable CLINICAL HISTORY: Chest pain, nonspecific. TECHNIQUE: An X-ray image of the chest is obtained in AP projection. COMPARISON: 06/21/2023 XR chest FINDINGS: Pulmonary Parenchyma: Obliterated left CP angle representing pleural effusion, with left lower lobe opacities and basal collapsed consolidation. Also, right lower lobe infiltrative opacities were noted. Heart and Mediastinum: Heart size and shape are normal. No mediastinal widening or masses. No hilar or mediastinal lymphadenopathy. Bony Thorax: Bony thorax appears intact without fractures or deformities. Soft Tissues: Soft tissues overlying the chest wall are unremarkable. IMPRESSION: 1. Obliterated left CP angle representing pleural effusion, with left lower lobe opacities and basal collapsed consolidation.New. 2. Also, right lower lobe infiltrative opacities were noted. New. Electronically signed by Raffi Padilla 07-24-2024 06:17 AM
[2024-07-24 06:19] LABS: Albumin Globulin Ratio 1.7 (0.9-2); BUN Creatinine Ratio 19.7 (10-20); Bilirubin,Total 0.9 mg/dl (0.2-1.0); Calcium 9.1 mg/dl (8.6-10.3); Creatinine Clr Calc Pharmacy 44.6 ml/min; Globulin 2.4 gm/dl (2.5-4.0); Magnesium 1.5 mg/dl (1.7-2.4); Potassium 4.2 mmol/L (3.5-5.1); Total Protein 6.4 gm/dl (6.0-8.3)
[2024-07-24 06:25] LABS: Troponin I High Sensitivity 5.3 pg/ml (0-14)
[2024-07-24 06:33] LABS: Basophils # (auto) 0.05 K/uL (0.00-0.20); Basophils % (auto) 0.3 %; Immature Granulocytes # (auto) 0.07 K/uL (0.01-0.20); Immature Granulocytes % (auto) 0.4 %; Lymphocytes # (auto) 0.66 K/uL (1.20-3.40); Lymphocytes % (auto) 4.1 %; Monocytes # (auto) 1.62 K/uL (0.11-0.59); Neutrophils # (auto) 13.76 K/uL (1.40-6.50); Neutrophils % (auto) 85.2 %; RBC Morphology Unremarkable
[2024-07-24 06:35] LABS: Partial Thromboplastin Ratio 1.1; Partial Thromboplastin Time 29 Seconds (21-31)
[2024-07-24 06:43] LABS: D Dimer 630 ug/L FEU (0-500)
[2024-07-24 06:46] LABS: Adenovirus PCR Not Detected (NotDetected); Bordetella parapertussis PCR Not Detected (NotDetected); Bordetella pertussis PCR Not Detected (NotDetected); Chlamydia pneumoniae PCR Not Detected (NotDetected); Coronavirus 229E PCR Not Detected (NotDetected); Coronavirus CoV-2 (COVID19)PCR Not Detected (NotDetected); Coronavirus HKU1 PCR Not Detected (NotDetected); Coronavirus NL63 PCR Not Detected (NotDetected); Coronavirus OC43PCR Not Detected (NotDetected); Human Metapneumovirus PCR Not Detected (NotDetected); Influenza A PCR Not Detected (NotDetected); Influenza B PCR Not Detected (NotDetected); Mycoplasma pneumoniae PCR Not Detected (NotDetected); Parainfluenza Virus 1 PCR Not Detected (NotDetected); Parainfluenza Virus 2 PCR Not Detected (NotDetected); Parainfluenza Virus 3 PCR Not Detected (NotDetected); Parainfluenza Virus 4 PCR Not Detected (NotDetected); Respiratory Syncytial VirusPCR Not Detected (NotDetected); Rhinovirus/Enterovirus PCR DETECTED (NotDetected)
[2024-07-24] MEDS: cefTRIAXone SODIUM 2,000 MG/50 ML BAG IV STA (07:17)
[2024-07-24] MEDS: SODIUM CHLORIDE 0.9% 1,000 ML IV ONE (07:20)
[2024-07-24] MEDS: OPTIRAY 320 125ml IV ONE (08:01)
--- NOTE | 2024-07-24 08:06 | Emergency Department Note ---
ED Visit Note ED NOTE: Received this patient in signout from Hannah Mcgrath PA-C at change of shift at 0730. Please refer to her dictation for the complete history, physical and ED course to this point. Briefly, patient is a 53-year-old female with past medical history significant for hypertension, migraine disorder, allergies, among other chronic medical problems who presented to the emergency department for evaluation of low blood pressure readings at home over the last 1-2 days, and not feeling well. ED workup at change of shift noted leukocytosis, lactic acidosis and pneumonia on chest x-ray. She had received appropriate fluid resuscitation. She was given IV ceftriaxone and azithromycin. D-dimer was elevated and chest CT was performed to evaluate for PE and was pending at change of shift. Patient was complaining of leg pain, and lower extremity ultrasound was ordered to evaluate for DVT, also pending at change of shift. Consultation placed with the [facility] service for admission. Patient reviewed with Dr. Coffey. He will admit the patient for further care. Chest CT per my interpretation notes consolidation consistent with multifocal pneumonia, no PE. Lower extremity ultrasound per my interpretation negative for DVT. .
--- NOTE | 2024-07-24 08:32 | CT Scan Report ---
CT angio chest PE protocol CT DOSE: 266.71 mGy.cm HISTORY: 53 years-old Female with PE. Acute shortness of breath with bradycardia TECHNIQUE: Multiple CTA images of the chest were obtained after the intravenous administration of 112 ml Optiray. Coronal and sagittal MIPS were obtained from the axial data set and were submitted for review. All measurements were obtained according to NASCET criteria. A dose lowering technique was u tilized adhering to the principles of ALARA. COMPARISON: Chest radiograph of same day FINDINGS: CTA: Moderate cardiomegaly. No pericardial effusion or thoracic aortic aneurysm. There is patency of the i kimberly great vessels. No pulmonary emboli identified. CT CHEST: Unremarkable thyroid.. No pathologically enlarged lymph nodes. Trace left pleural effusion. No pneumo thorax. Intralobular septal thickening noted within the lung bases. Patchy groundglass and consolidat ruchi opacities are noted within the left greater than right lung bases with air bronchograms and mucou s plugging. There is mild biapical pleural parenchymal scarring. Right renal calculi measuring up to 4 mm. Unremarkable soft tissues. No acute fracture. IMPRESSION: 1. No pulmonary emboli. 2. Mucous plugging with multifocal bibasilar predominant pneumonia, most pronounced in the lingula. F ollow-up chest radiographs after treatment course recommended in order to document resolution. 3. Trace left pleural effusion. 4. Nonobstructing right nephrolithiasis. ACT 112: Negative or not required by law. The above report was generated using voice recognition software. It may contain grammatical, syntax o r spelling errors. Electronically signed by: Solitario Fisher M.D. 07/24/2024 8:30 AM
[2024-07-24] MEDS: AZITHROMYCIN 250 MG TAB PO ONE (08:55)
--- NOTE | 2024-07-24 08:55 | Ultrasound Report ---
BILATERAL LOWER EXTREMITY VENOUS DOPPLER HISTORY: Bilateral leg pain, elev D-dimer, eval DVT COMPARISON STUDY: None FINDINGS: No evidence of DVT seen at the lower extremities. IMPRESSION: No DVT seen. ACT 112: Negative or not required by law. Electronically signed by: Nic Larios M.D. 07/24/2024 8:53 AM
--- NOTE | 2024-07-24 09:15 | History & Physical Report ---
Date of Service July 24, 2024 Assessment & Plan (1) SOB (shortness of breath): Plan: SOB in a 53 yo female with rhinovirus infection and likely superimposed bacterial pneumonia. Will start patient on antibiotics: rocepin and azit and will monitor. Place on nebulizer albuterol incentive spirometry and flutter valve. (2) Rhinovirus infection: Plan: supportive care as above Plan Hypertension: resume home meds. DVT: lovenox. History of Present Illness Chief Complaint: Generalized malaisea Primary Care Provider: Fermin Pressley PA-C 53 yo female with past medical history noted below presents to the hospital with generalized malaise. Patient states over the past few months she has not felt like herself getting sick intermittent during this time. She also has been having symptoms of weakness, and "heavy legs" from her being switched to metoprolol. However this past week she has noticed a sore throat and this progressively got worse where she feels fatigued and SOB. This prompted her to come in to the hospital. Allergies Allergy/AdvReac Type Severity Reaction Status Date / Time Beef Containing Products Allergy Intermediate sorethroat Verified 07/24/24 08:49 chicken derived Allergy Intermediate sorethroat Verified 07/24/24 08:49 ketorolac Allergy Intermediate Rash Verified 07/24/24 08:49 mold Allergy Intermediate sorethroat Verified 07/24/24 08:49 pollen extracts Allergy Intermediate sorethroat Verified 07/24/24 08:49 milk Allergy Mild GI SYMPTOMS Verified 07/24/24 08:49 ENNVIRONMENT Allergy Severe SORE Uncoded 07/24/24 08:49 THROAT,HEADACHE Home Medications Medication Instructions Recorded Confirmed Type multivitamin 1 tab PO QAM 01/06/18 07/24/24 History azelastine 137 mcg (0.1 %) nasal 1 spray intranasal DAILY 04/02/24 07/24/24 History spray budesonide 0.5 mg/2 mL suspension 0.5 mg irrigation DAILY 04/02/24 07/24/24 History for nebulization buspirone 5 mg tablet 5 mg PO BID 04/02/24 07/24/24 History fluoxetine 20 mg capsule (Prozac) 20 mg PO DAILY 04/02/24 07/24/24 History fluoxetine 40 mg capsule (Prozac) 40 mg PO DAILY 04/02/24 07/24/24 History hydrocodone 5 mg-acetaminophen 325 1 tab PO BID PRN Back Pain 04/02/24 07/24/24 History mg tablet calcium citrate 200 mg PO TIDWMEAL 07/24/24 07/24/24 History coenzyme Q10 100 mg capsule 100 mg PO DAILY 07/24/24 07/24/24 History (CoQ-10) cyanocobalamin (vitamin B-12) 1,000 mcg PO DAILY 07/24/24 07/24/24 History 1,000 mcg tablet (Vitamin B-12) dupilumab 300 mg/2 mL subcutaneous 300 mg subcut Q14D 07/24/24 07/24/24 History pen injector (Dupixent) erenumab-aooe 140 mg/mL 140 mg subcut MONTHLY 07/24/24 07/24/24 History subcutaneous auto-injector (Aimovig Autoinjector) levocetirizine 5 mg tablet 5 mg PO HS 07/24/24 07/24/24 History metoprolol tartrate 25 mg tablet 12.5 mg PO BID 07/24/24 07/24/24 History Past Med/Surg History Problem List Bilateral leg pain (Acute) SOB (shortness of breath) (Acute) Chest pain (Acute) Rhinovirus infection (Acute) Acute hypotension (Acute) Pneumonia (Acute) Sepsis (Acute) Dysuria Urinary tract infection (Acute) Encounter for pre-operative examination Nephrolithiasis R UVJ stone - plan for cysto, R URS/LL/stent Right flank pain Medical History History of strep sore throat finished treatment 1 week ago Yeast infection finishing treatment by 07/17/22 Brain bleed - Per MRI over a year ago, follows with neurology [facility] in [place] every year per pt - Per 07/16/22 neuro note- MRI of brain was "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 No evidence of acute bleed- neuro will jsut monitor with MRIs History of COVID-24 Aug 2021 > not hospitalized Kidney stones Hx of peptic ulcer resolved Migraine every couple months follows with neuro Hypertension Environmental allergies Seasonal allergies Surgical History History of esophagogastroduodenoscopy (EGD) History of cystoscopy S/P cervical spinal fusion limited ROM History of mandibular surgery Nausea and vomiting after administration of anesthetic agent Hx of cervical discectomy limited rom with neck - continues to have pain in neck History of lithotripsy Hx of oophorectomy right History of hysterectomy History of appendectomy History of colonoscopy Family History Father Family history of diabetes mellitus Social History Smoking Status: Never smoker Second Hand Exposure: No; Do You Dip or Chew Tobacco: No; Hx Alcohol Use: No Hx Substance Use: No Preferred Language: Kyrgyz Communication Ability: Effective Visual Impairment: No 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 Beliefs That Will Affect Care: None Current Living Situation: Spouse Feels Safe at Home: Yes Safety Concerns: Feels Safe At This Time Assistive Devices: None Review of Systems Constitutional: + body aches and + fatigue Eyes: no blind spots Ear, Nose, Mouth, Throat: no ear pain Respiratory: + cough Cardiovascular: no chest pain Gastrointestinal: no abdominal pain and no early satiety Genitourinary: no dysuria Musculoskeletal: no back pain Integumentary: no acne Neurologic: no gait abnormality Psychiatric: no behavioral changes Endocrine: + fatigue Hematologic / Lymphatic: no easy bleeding Allergy / Immunological: no GI upset with certain foods Physical Exam Constitutional: WD/WN, vitals as above Eyes: PERRL, conjunctivae normal, anicteric sclerae ENMT: external ear and nose normal, oropharynx normal Respiratory: + respiratory distress; does not use acc essory muscles Auscultation: + diminished lung sounds and + rhonchi Cardiovascular: RRR, no murmur, no edema Gastrointestinal (Abdomen): normal bowel sounds, soft, nontender, no hepatosplenomegaly Musculoskeletal: Head/Neck/Chest: normocephalic and head atraumatic Skin: no rashes, warm and dry Psychiatric: A+Ox3, euthymic affect Lymphatic: no cervical or axillary lymphadenopathy Results & Data Results & Data Vital Signs (Past 12 Hours) Vital Signs Temp Pulse Resp BP Pulse Ox O2 Del Method 07/24/24 07:33 78 24 97 07/24/24 06:45 111/62 07/24/24 06:30 111/71 07/24/24 06:15 77 19 108/64 96 Room Air 07/24/24 06:00 75 21 106/67 96 Room Air 07/24/24 05:45 75 20 86/60 L 96 Room Air 07/24/24 05:36 77 21 103/71 97 Room Air 07/24/24 05:11 99 Room Air 07/24/24 05:06 79 07/24/24 05:01 36.6 C 77 20 106/48 L 96 Room Air PG Care Time/CCT Total # of Minutes Spent Total Time Spent with Patient: Total time spent is greater than 50% in coordination of care (as documented) at patient's floor/unit and/or counseling patient: Coding Level of Care Code 94648 INT INP/OBS CARE 375MIN Diagnoses SOB (shortness of breath) R06.02 Rhinovirus infection B34.8
[2024-07-24] MEDS: SODIUM CHLORIDE 0.9% 1,000 ML IV SCH (11:29)
[2024-07-24] MEDS ORDERED: ALBUTEROL 0.083% NEBU SOLN 3 ML VIAL NEB PRN (12:13)
[2024-07-24] MEDS: ALBUTEROL 0.083% NEBU SOLN 3 ML VIAL NEB STA (12:24)
[2024-07-24] MEDS: ENOXAPARIN INJ 40 MG/0.4 ML SYR SQ SCH (12:47)
[2024-07-24] MEDS: CALCIUM CITRATE 950 MG TAB PO SCH (12:47)
[2024-07-24] MEDS: ADVANCED PROBIOTIC 625 MG CAPSULE PO SCH (12:47)
--- NOTE | 2024-07-24 14:23 | Electrocardiogram Report ---
Test Reason : Blood Pressure : */* mmHG Vent. Rate : 77 BPM Atrial Rate : 77 BPM P-R Int : 152 ms QRS Dur : 72 ms QT Int : 400 ms P-R-T Axes : 80 72 75 degrees QTcB Int : 452 ms Normal sinus rhythm Normal ECG When compared with ECG of 21-Jun-2023 20:38, QT has lengthened Confirmed by Alex Layne ([id number]) on 07/24/2024 2:23:41 PM Referred By: REFERRED SELF Confirmed By: Alex Layne
[2024-07-24] MEDS: METOPROLOL TARTRATE 25 MG TAB PO SCH (20:28)
[2024-07-24] MEDS: busPIRone 5 MG TAB PO SCH (20:29)
[2024-07-24] MEDS ORDERED: ACETAMINOPHEN 325 MG TAB PO PRN (20:44)
[2024-07-24] MEDS: HYDROcodone/ACETAMINOPHEN 10/325 TAB PO PRN (21:14)
[2024-07-24] MEDS: CETIRIZINE HCL 10 MG TABLET PO SCH (21:22)
[2024-07-25] MEDS: cefTRIAXone SODIUM 2,000 MG/50 ML BAG IV SCH (05:35)
[2024-07-25] MEDS: CYANOCOBALAMIN (B-12) 500 MCG TABLET PO SCH (08:55)
[2024-07-25] MEDS: FLUoxetine HCL 20 MG CAP PO SCH (08:57)
[2024-07-25] MEDS: MULTIVITAMIN TAB PO SCH (08:57)
[2024-07-25] MEDS: AZITHROMYCIN 250 MG TAB PO SCH (08:59)
[2024-07-25] MEDS ORDERED: FLUoxetine HCL 20 MG CAP PO SCH (09:00)
[2024-07-25] MEDS ORDERED: NON-FORMULARY MEDICATION (Coenzyme Q10 [Coq-10] 100 mg Capsule) PO SCH (09:00)
--- NOTE | 2024-07-25 22:36 | Hospitalist Progress Note ---
Date of Service July 25, 2024 Assessment & Plan (1) SOB (shortness of breath): Plan: SOB in a 53 yo female with rhinovirus infection and likely superimposed bacterial pneumonia. Will start patient on antibiotics: rocepin and azit and will monitor. Place on nebulizer albuterol incentive spirometry and flutter valve. will continue above treatment. no fever on 07/25 so far. WBC though trending upward. (2) Rhinovirus infection: Plan: supportive care as above Plan Hypertension: resume home meds. DVT: lovenox. Admission and Anticipated Discharge Date Admission Date: July 24, 2024 Subjective Patient reports feeling slightly better but not quite at baseline. Review of Systems Review of Systems: All systems reviewed & are unremarkable except as noted in HPI & below Physical Exam Constitutional: WD/WN, vitals as above Eyes: PERRL, conjunctivae normal, anicteric sclerae ENMT: external ear and nose normal, oropharynx normal Respiratory: + respiratory distress; does not use acc essory muscles Auscultation: + diminished lung sounds and + rhonchi Cardiovascular: RRR, no murmur, no edema Gastrointestinal (Abdomen): normal bowel sounds, soft, nontender, no hepatosplenomegaly Musculoskeletal: Head/Neck/Chest: normocephalic and head atraumatic Skin: no rashes, warm and dry Psychiatric: A+Ox3, euthymic affect Lymphatic: no cervical or axillary lymphadenopathy Results & Data Results & Data Vital Signs (Past 12 Hours) Vital Signs Temp Pulse Resp BP Pulse Ox O2 Del Method 07/25/24 20:37 37.2 C 98 H 20 157/85 H 92 Room Air PG Care Time/CCT Total # of Minutes Spent Total Time Spent with Patient: Total time spent is greater than 50% in coordination of care (as documented) at patient's floor/unit and/or counseling patient: Coding Level of Care Code 11009 SUB INP/OBS CARE 3/50MIN Diagnoses SOB (shortness of breath) R06.02 Rhinovirus infection B34.8
[2024-07-26] MEDS: traMADol HCL 50 MG TABLET PO STA (00:53)
[2024-07-26] MEDS: BENZONATATE 100 MG CAPSULE PO PRN (06:25)
[2024-07-26 07:19] LABS: Basophils # (auto) 0.06 K/uL (0.00-0.20); Basophils % (auto) 0.4 %; Eosinophils # (auto) 0.05 K/uL (0.00-0.50); Eosinophils % (auto) 0.4 %; Hematocrit (blood only) 32.6 % (37.0-47.0); Hemoglobin 10.7 g/dl (12.0-16.0); Immature Granulocytes # (auto) 0.34 K/uL (0.01-0.20); Immature Granulocytes % (auto) 2.4 %; Lymphocytes # (auto) 1.38 K/uL (1.20-3.40); Lymphocytes % (auto) 9.8 %; Mean Corpuscular Hemoglobin 30.7 pg (25.0-34.0); Mean Corpuscular Hgb Conc 32.8 g/dL (32.0-36.0); Mean Corpuscular Volume 93.4 fL (80.0-100.0); Mean Platelet Volume 10.1 fL (9.4-12.4); Monocytes % (auto) 7.8 %; Neutrophils # (auto) 11.14 K/uL (1.40-6.50); Neutrophils % (auto) 79.2 %; Platelet Count 182 K/uL (130-400); RDW Coefficient of Variation 13.7 % (11.5-14.5); RDW Standard Deviation 47.1 fL (36.4-46.3); Red Blood Count 3.49 M/uL (4.20-5.40); White Blood Count 14.07 K/ul (4.8-10.8)
[2024-07-26 07:49] LABS: BUN Creatinine Ratio 13.9 (10-20); Creatinine Clr Calc Pharmacy 73.9 ml/min; Potassium 3.6 mmol/L (3.5-5.1)
[2024-07-26] MEDS: SODIUM CHLOR 7% 4 ML NEB NEB SCH (08:29)
--- NOTE | 2024-07-26 22:27 | Hospitalist Progress Note ---
Date of Service July 26, 2024 Assessment & Plan (1) SOB (shortness of breath): Plan: SOB in a 53 yo female with rhinovirus infection and likely superimposed bacterial pneumonia. Will start patient on antibiotics: rocepin and azit and will monitor. Place on nebulizer albuterol incentive spirometry and flutter valve. will continue above treatment. WBC now downtrending, continues to have leukocytosis. will continue to monitor. vitals are stable (2) Rhinovirus infection: Plan: supportive care as above Plan Hypertension: resume home meds. DVT: lovenox. Admission and Anticipated Discharge Date Admission Date: July 24, 2024 Subjective Patient reports breathing better but not quite at baseline as of yet. Physical Exam Constitutional: WD/WN, vitals as above Eyes: PERRL, conjunctivae normal, anicteric sclerae ENMT: external ear and nose normal, oropharynx normal Respiratory: no respiratory distress (improved breath sounds) and does not use accessory muscles Auscultation: no rhonchi Cardiovascular: RRR, no murmur, no edema Gastrointestinal (Abdomen): normal bowel sounds, soft, nontender, no hepatosplenomegaly Musculoskeletal: Head/Neck/Chest: normocephalic and head atraumatic Skin: no rashes, warm and dry Psychiatric: A+Ox3, euthymic affect Lymphatic: no cervical or axillary lymphadenopathy Results & Data Results & Data Vital Signs (Past 12 Hours) Vital Signs Temp Pulse Resp BP Pulse Ox O2 Del Method 07/26/24 20:05 80 18 95 Room Air 07/26/24 19:22 37.0 C 80 18 128/79 94 Room Air 07/26/24 15:17 36.8 C 70 18 125/75 95 Room Air 07/26/24 11:01 36.8 C 64 18 113/72 93 Room Air PG Care Time/CCT Total # of Minutes Spent Total Time Spent with Patient: Total time spent is greater than 50% in coordination of care (as documented) at patient's floor/unit and/or counseling patient: Coding Level of Care Code 68593 SUB INP/OBS CARE 3/50MIN Diagnoses SOB (shortness of breath) R06.02 Rhinovirus infection B34.8
[2024-07-27 07:00] LABS: Hematocrit (blood only) 33.9 % (37.0-47.0); Hemoglobin 11.4 g/dl (12.0-16.0); Mean Corpuscular Hemoglobin 31.1 pg (25.0-34.0); Mean Corpuscular Hgb Conc 33.6 g/dL (32.0-36.0); Mean Corpuscular Volume 92.6 fL (80.0-100.0); Mean Platelet Volume 10.7 fL (9.4-12.4); Platelet Count 233 K/uL (130-400); RDW Coefficient of Variation 13.3 % (11.5-14.5); Red Blood Count 3.66 M/uL (4.20-5.40); White Blood Count 8.34 K/ul (4.8-10.8)
[2024-07-27 07:17] VITALS: BP 142/84; TEMP 98.2
[2024-07-27 07:18] LABS: BUN Creatinine Ratio 12.9 (10-20); C Reactive Protein 11.53 mg/dl (0-0.5); Calcium 8.3 mg/dl (8.6-10.3); Potassium 3.5 mmol/L (3.5-5.1)
[2024-07-27 07:34] VITALS: PULSE 91; RESP 15; O2SAT 95
[2024-07-27] MEDS: cefUROXime axetil 500 MG TAB PO SCH (11:20)
--- NOTE | 2024-07-27 11:21 | Discharge Summary ---
Discharge Summary Date of Service July 27, 2024 Principal Dx & Hospital Course #1 = Principal Diagnosis (1) SOB (shortness of breath): Sepsis Pneumonia SOB and sore throat in a 53 yo female with rhinovirus infection and likely superimposed bacterial pneumonia. Patient with signs of sepsis: tachycardic, leukocytosis 16. Patient was treated with rocephin and 3 days of 500 mg of azithromycin. Patient slowly improved on day 3 of hospitalization. Supportive care was provided with incentive spirometry and flutter valce. Lekuocytosis also resolved. Patient will complete 5 more days of cefuroxime at home starting tonight. (2) Rhinovirus infection: supportive care as above Plan Hypertension: resume home meds. Admission HPI Per Admitting Provider 53 yo female with past medical history noted below presents to the hospital with generalized malaise. Patient states over the past few months she has not felt like herself getting sick intermittent during this time. She also has been having symptoms of weakness, and "heavy legs" from her being switched to metoprolol. However this past week she has noticed a sore throat and this progressively got worse where she feels fatigued and SOB. This prompted her to come in to the hospital. Discharge Exam Constitutional WD/WN, vitals as above Eyes PERRL, conjunctivae normal, anicteric sclerae ENMT external ear and nose normal, oropharynx normal Respiratory no respiratory distress and does not use accessory muscles Gastrointestinal (Abdomen) normal bowel sounds, soft, nontender, no hepatosplenomegaly Musculoskeletal Head/Neck/Chest: normocephalic and head atraumatic Skin no rashes, warm and dry Psychiatric A+Ox3, euthymic affect Lymphatic no cervical or axillary lymphadenopathy Discharge Plan Discharge Items Patient Disposition: Home - Self-Care Reason For Visit: Rhinovirus Discharge Diagnosis: Rhinovirus Condition on Discharge: Good Activity: Resume your previous activity Non-emergency contact: Primary Care Provider Call non-emergency contact if: you have any medication questions Follow-up/Referrals: Fermin Pressley PA-C [Primary Care Provider] - Diet: Heart Healthy Addtl Attending Provider Instructions: Please continue antibiotics for 5 more days. Tale your first antibiotic in the evening of 07/27/24 Recommend followup with PCP in 1-2 weeks. Pending Studies at Discharge: No Stand-Alone Forms: [employer], Smoking Cessation Medications and DC Order Prescriptions: New cefuroxime axetil 500 mg Tablet 500 mg PO BID Qty: 10 0RF benzonatate 100 mg capsule 100 mg PO PM PRN (Reason: cough) Qty: 10 0RF Continued fluoxetine [Prozac] 40 mg capsule 40 mg PO DAILY Rx Instructions: Take w/ 20mg to equal 60mg by mouth daily fluoxetine [Prozac] 20 mg capsule 20 mg PO DAILY Rx Instructions: Take w/ 40mg to equal 60mg by mouth daily buspirone 5 mg tablet 5 mg PO BID budesonide 0.5 mg/2 mL suspension for nebulization 0.5 mg irrigation DAILY azelastine 137 mcg (0.1 %) spray,non-aerosol 1 spray intranasal DAILY hydrocodone-acetaminophen 5-325 mg tablet 1 tab PO BID PRN (Reason: Back Pain) Rx Instructions: Pt is with [facility] for pain management. multivitamin Tablet 1 tab PO QAM cyanocobalamin (vitamin B-12) [Vitamin B-12] 1,000 mcg Tablet 1,000 mcg PO DAILY calcium citrate 200 mg (950 mg) Tablet 200 mg PO TIDWMEAL coenzyme Q10 [CoQ-10] 100 mg Capsule 100 mg PO DAILY metoprolol tartrate 25 mg tablet 12.5 mg PO BID levocetirizine 5 mg tablet 5 mg PO HS Aimovig Autoinjector 140 mg/mL auto-injector 140 mg subcut MONTHLY Dupixent Pen 300 mg/2 mL pen injector 300 mg subcut Q14D Discharge Orders: Discharge Order (Routine); Ordered 07/27/24 Ordered By: Mohan Coffey Admission Data Admit Date/Time: 07/24/24 09:14 Attending Provider: Mohan Coffey Admit Provider: Mohan Coffey Primary Care Provider: Fermin Pressley Other Providers: Mohan Coffey Hospital Stay Data Consultations 07/24/24 08:46 ED Decision to Admit Stat Diagnostic Imagining Performed 07/24/24 06:50 CT angio chest PE protocol Stat US venous doppler LE BI Stat Pending Results Patient Have Any Pending Studies at Discharge: No Discharge Instructions Given to Patient (Per Discharging Provider) Please continue antibiotics for 5 more days. Tale your first antibiotic in the evening of 07/27/24 Recommend followup with PCP in 1-2 weeks. Total Time Total Time Spent Total Time Spent (In Minutes): 32 Coding Level of Care Code 28001 INP/OBS DISCH >30 MIN Diagnoses SOB (shortness of breath) R06.02 Rhinovirus infection B34.8
== END 2024-07-27 13:14 | disposition home or self-care (01) | DRG 871 ==
LOC: SUATTDRO → ED 04:50 → EDINP 09:14 → 3E 18:11